=== PATIENT | female | born 1975 | race Caucasian/White ===

== ENCOUNTER 2019-11-27 02:50 | Emergency (ER) | payer SELFPAY ==
[~2019-11-27] VITALS: Ht 165.1 cm; Wt 73.9 kg
--- NOTE | 2019-11-27 02:51 | NUR ---
PT AAOX4. AMBULATORY BIBRA. PER RA WAS IN THE RESTROOM AND FELL, HIT HER HEAD. LAC NOTED ON HEAD. MD AT BEDSIDE FOR EVAL. VSS.
[2019-11-27] MEDS ORDERED: TDAP [DIPH/PERTUSSIS/TET] 0.5 ML VIAL IM ONE ×2 (03:00)
[2019-11-27] MEDS ORDERED: IV NS 0.9% 1,000 ML BAG IV ONE (03:00)
--- NOTE | 2019-11-27 03:06 | NUR ---
PT REFUSED IV ACCESS. RISK AND BENEFITS EXPLAINED X3. PT STRONGLY REFUSED STATES "I DONT NEED IT IM FINE" DR. HEAD AWARE.
--- NOTE | 2019-11-27 03:17 | NUR ---
PT VERBALIZED SHE IS INTOXICATED.
[2019-11-27] MEDS ORDERED: LIDOCAINE 2%-EPI 1:100,000 30 ML VIAL ONE (03:23)
--- NOTE | 2019-11-27 03:47 | NUR ---
PATIENT IS OKAY WITH BLOOD DRAW THROUGH I.V.
[2019-11-27 04:02] LABS: BASOPHILS # (AUTO) 0.1 /CMM (0.0-0.2); BASOPHILS % (AUTO) 0.5 % (0.0-2.0); EOSINOPHILS % (AUTO) 0.1 % (0.0-6.0); HEMATOCRIT 42 % (33-45); LYMPHOCYTES # (AUTO) 1.8 /CMM (0.8-4.8); LYMPHOCYTES % (AUTO) 14.9 % (20.0-44.0); MEAN CORPUSCULAR HGB CONC 33 g/dl (31.0-36.0); MEAN CORPUSCULAR VOLUME 92 fL (82-100); MONOCYTES # (AUTO) 0.5 /CMM (0.1-1.30); NEUTROPHILS % (AUTO) 80.5 % (43.0-81.0); PLATELET COUNT (AUTO) 363 /CMM (150-450); RED BLOOD CELL COUNT(AUTO) 4.56 MIL/uL (4.0-5.2); WHITE BLOOD COUNT (AUTO) 12.4 K/uL (4.3-11.0)
--- NOTE | 2019-11-27 04:10 | NUR ---
PATIENT TAKEN TO CT.
[2019-11-27 04:18] LABS: ALCOHOL, BLOOD 260 mg/dL (0-0)
--- NOTE | 2019-11-27 04:25 | NUR ---
pt refused cxr per radiologist tech. dr. hill aware.
[2019-11-27] MEDS ORDERED: LIDOCAINE 2%-EPI 1:100,000 30 ML VIAL TP ONE (04:30)
[2019-11-27 04:36] LABS: ALANINE AMINOTRANSFERASE 43 U/L (12-78); ALBUMIN 4.1 g/dL (3.4-5.0); ALKALINE PHOSPHATASE 53 U/L (46-116); ASPARTATE AMINOTRANSFERASE 31 U/L (15-37); BILIRUBIN,DIRECT 0.1 mg/dL (0.0-0.2); BILIRUBIN,TOTAL 0.3 mg/dL (0.2-1.0); CALCIUM, SERUM 8.7 mg/dL (8.5-10.1); CARBON DIOXIDE 21 mmol/L (21-32); CHLORIDE 102 mmol/L (98-107); CREATININE 0.9 mg/dL (0.6-1.3); GLUCOSE 140 mg/dL (74-106); POTASSIUM 3.8 mmol/L (3.5-5.1); SODIUM SERUM 138 mmol/L (136-145); UREA NITROGEN, BLOOD 6 mg/dL (7-18)
--- NOTE | 2019-11-27 05:29 | NUR ---
pt cleared for discharge per dr. hill. pt ambualtory with steady gait. Patient discharged to home in stable condition. Written and verbal after care instructions given. Patient verbalizes understanding of instruction. IV removed. Catheter intact and site benign. Pressure and 4x4 applied to site. No bleeding noted.
[2019-11-27 05:37] VITALS: BP 106/68
== END 2019-11-27 05:37 | disposition home or self-care (01) ==
LOC: ER 03:07
DX: S01.01XA Laceration without foreign body of scalp, initial encounter (principal); F10.129 Alcohol abuse with intoxication, unspecified; R55 Syncope and collapse; W18.39XA Other fall on same level, initial encounter; Y93.89 Activity, other specified; Y92.89 Other specified places as the place of occurrence of the external cause; Y99.8 Other external cause status; Y90.8 Blood alcohol level of 240 mg/100 ml or more
CPT/HCPCS: 12002; 36415; 70450; 72125; 80048; 80076; 80307; 84484; 84702; 85025; 85730; 93005; 96360; 99285; A6403; J3490; 90715; G0480